=== PATIENT | male | born 1965 | race Caucasian/White ===

== ENCOUNTER 2017-05-11 12:19 | Emergency (ER) | payer OTHER ==
[~2017-05-11] VITALS: Ht 172.7 cm; Wt 89.1 kg
[2017-05-11 12:23] VITALS: BP 168/97; PULSE 80; TEMP 36.7; O2SAT 97; Ht 172.7 cm; Wt 89.1 kg
[2017-05-11] MEDS ORDERED: LIDOCAINE/EPINEPHRINE 1% 20 ML VIAL INFIL ONE (13:00)
--- NOTE | 2017-05-11 14:08 | DIAGNOSTIC IMAGING REPORT ---
RIGHT RIBS UNILATERAL WITH PA CHEST CLINICAL HISTORY: fall; right rib pain Right COMPARISON STUDY: None. FINDINGS: Low lung volumes. The lungs are clear. No pleural effusions. No pneumothorax. The heart is borderline enlarged. No rib fractures. IMPRESSION: No rib fractures. No pneumothorax. Electronically signed by: Lele Mac M.D. 05/11/2017 2:07 PM Dictated Date/Time: 05/11/2017 2:04 PM
[2017-05-11] MEDS ORDERED: METO50TA7 PO (14:10)
[2017-05-11] MEDS ORDERED: METF-384 PO (14:10)
[2017-05-11] MEDS ORDERED: GLIM2TAB2 PO (14:10)
[2017-05-11] MEDS ORDERED: LISI-788 PO (14:10)
--- NOTE | 2017-05-12 16:57 | EMERGENCY ROOM VISIT NOTE ---
ED Visit Note First contact with patient: 12:28 Chief Complaint: I cut my head and struck my ribs on the gait. History of Present Illness: Mr. Fregoso is a 51-year-old white male who ambulates into the ED accompanied by his complaining of a scalp laceration and right sided rib pain. 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 He reports one of the bulls became agitated and knocked him into a gate and he struck his right anterior and lateral ribs off a metal gate. He then started falling towards the ground and the ball kicked and he reports he had a glancing blow to the scalp and sustained a laceration. At the time of the injury he reports there was no loss of consciousness and since the injury he denies all signs of head injury. Currently he is complaining of a burning sensation in the area of his scalp laceration. He rates his discomfort 4/10. His pain is nonradiating. His pain worsens with palpation. He has not identified any alleviating factors related to the pain. He has not taken medications for pain prior to arrival at the hospital. Additionally he is complaining of pain over the right side of the chest wall in the areas of ribs 5 through 7. The pain is located anterior laterally. He rates this discomfort 3/10. His pain is nonradiating. His pain worsens with palpation and deep inspiration. He has not identified any alleviating factors related to the pain. He has not taken any medications for pain prior to arrival at the hospital. He denies any associated headache, dizziness, lightheadedness, visual changes, hearing changes, difficulty speaking, difficulty swallowing, difficulty ambulating/coordinating body movements, neck pain, chest pain, shortness of breath, difficulty breathing, abdominal pain, nausea/vomiting, extremity weakness/numbness/tingling. Review of Systems: As noted above in history of present illness. 8 body systems were reviewed and found to be negative as noted above. Past Medical History: Diabetes, hypertension, unspecified skin disorder, surgical repair on unspecified arm injury and knee injury. Current Medications: Medications Dose Route/Sig Max Daily Dose Days Date Category Zestoretic 20MG/25MG (HCTZ/Lisinopril) Tab 1 Tab PO DAILY 05/11/17 Reported Glucophage (Metformin Hcl) 1,000 Mg Tab 1,000 Mg PO BID 05/11/17 Reported Toprol-Xl (Metoprolol Succinate) 50 Mg Tabcr 50 Mg PO DAILY 05/11/17 Reported Glimepiride 2 Mg Tab 1 Tab PO DAILYBB 05/11/17 Reported Allergies to Medications: Penicillin. Social History: Patient is currently employed; he feels safe in his home environment; he denies tobacco use and admits to alcohol use. Tetanus Immunization Status: Patient was unsure. Physical Examination: Vital Signs: Date Time Temp Pulse Resp B/P (MAP) Pulse Ox O2 Delivery O2 Flow Rate FiO2 05/11/17 12:23 36.7 80 20 168/97 97 Room Air GENERAL: 51-year-old male in mild to moderate distress due to pain, nontoxic- appearing, afebrile and hemodynamically stable. NEUROLOGICAL: Awake, alert and oriented to person, place and time. Answering questions appropriately and following commands. Normal gait. Good hand eye coordination. No focal motor sensory deficits. Cranial nerves II through XII grossly intact. Romberg test negative. Pronator drift test negative. Good short-term and long-term recall. Normal rapid Movements of the hands. SKIN: Warm, diaphoretic and pink. Scalp: 6.5 cm full-thickness laceration over the right temporal area. Minimally bleeding. HEENT: Skull: Normocephalic. Soft tissue injury as noted above. No bony deformity, bony crepitus or depressions. No raccoon's eyes or bethea signs. No drainage from the ears or the nostril; no hemotympanum. Face: No bony deformity, tenderness, swelling or ecchymosis. PERRLA. EOMI without nystagmus. No malocclusion. No intraoral trauma. Airway patent. Speech normal. No lymphadenopathy. BACK: No tenderness over the bony cervical and thoracic spine. No CVA tenderness. THORAX: Lungs sounds are clear to auscultation and equal bilaterally with symmetrical chest wall. Mild to moderate tenderness over the anterior and lateral aspect of the right ribs 5 through 7. No bony crepitus, subcutaneous air or deformities are noted. ABDOMEN: Flat, soft and nontender. Positive bowel sounds in all quadrants. No guarding, rigidity or organomegaly. EXTREMITIES: Moves all extremities well on command and with purpose. All distal neurovascular statuses are intact and equal bilaterally. ED Course: Patient is assessed as noted above. Patient's medication list was reviewed. [id number] BSG: Over 300. PA Chest and Right Rib Series: Were read by myself and the radiologist showing no acute infiltrates, effusions or pneumothorax. Normal heart silhouette and bony anatomy. Wound Repair: Complexity: Basic Verbal consent was obtained after the risks and benefits were explained. The skin was prepped with betadine and a sterile field set. Wound edges of the wound was anesthetized with 6.2 ml buffered 1% lidocaine. The wound was explored for foreign bodies and none found. Copious irrigation was performed using sterile saline. With direct pressure the bleeding subsided. Debridement was not performed. The wound edges were approximated using 11 yvan. Hemostasis and excellent approximation was achieved. Antibacterial ointment applied. No complications and the patient tolerated the procedure well. Prior to departure I did have a conversation with the patient involving his blood sugar and hypertension. He reports last few months both his blood sugar and hypertension have been in flux and his primary care provider is currently changing his medications for improvement of both of these issues. I did request that he follow-up with his primary care provider because his readings were elevated today and he agreed to do so. Patient was educated about tonight's findings and instructed on his treatment plan; he verbalizes understanding and agreement with this plan. Clinical Impression: Laceration of the right temporal scalp. Right sided rib pain. Disposition: Patient discharged home in stable condition; prior to departure he was reassessed and subjectively reported he was pain and symptom-free. Plan: Comfort measures, wound care, signs of infection and signs of head injury were discussed with the patient and his . Patient was encouraged to follow-up with personal physician or return emergency department for signs of infection and/or staple removal in 10-12 days. Patient was encouraged return to the ED for any signs of head injury or any new/ concerning symptoms.
== END 2017-05-11 14:27 | disposition home or self-care (01) ==
LOC: C.EDB 12:21 → C.EDD 14:27
DX: S01.01XA Laceration without foreign body of scalp, initial encounter (principal); R07.81 Pleurodynia; E11.9 Type 2 diabetes mellitus without complications; I10 Essential (primary) hypertension; Z79.899 Other long term (current) drug therapy; Z79.84 Long term (current) use of oral hypoglycemic drugs; W22.8XXA Striking against or struck by other objects, initial encounter; W55.22XA Struck by cow, initial encounter

== ENCOUNTER 2017-05-21 11:35 | Emergency (ER) | payer OTHER ==
[~2017-05-21] VITALS: Ht 170.2 cm; Wt 87.9 kg
[~2017-05-21 11:35] MED LIST: GLIM2TAB2 PO; LISI-788 PO; METF-384 PO; METO50TA7 PO
[2017-05-21 11:39] VITALS: BP 172/115; PULSE 83; TEMP 36.5; O2SAT 97; Ht 170.2 cm; Wt 87.9 kg
--- NOTE | 2017-05-22 06:50 | EMERGENCY ROOM VISIT NOTE ---
ED Visit Note First contact with patient: 11:45 CHIEF COMPLAINT: Staple removal. HISTORY OF PRESENT ILLNESS: Mr. Fregoso is a 51-year-old male who ambulates into the ED requesting staple removal for a scalp laceration he sustained 10 days ago. He reports there has been no pain, swelling, redness, or drainage from the wound and he feels like the laceration is healing well. PHYSICAL EXAM: Vital Signs: Date Time Temp Pulse Resp B/P (MAP) Pulse Ox O2 Delivery O2 Flow Rate FiO2 05/21/17 11:39 36.5 83 18 172/115 97 Room Air General: 51-year-old male in no acute distress, nontoxic-appearing, afebrile and hypertensive; should be noted from his previous medical records he is currently in treatment for hypertension and reports that he has been following with his primary care provider in his medications for his hypertension has been reevaluated. Neurological: Awake, alert and oriented 3. Answering questions appropriately and following commands. Scalp: Clean dry and intact wound with a large amount of scab around his wound. No signs of infection (erythema, swelling, tenderness, purulent drainage ). ED COURSE: Patient is assessed as noted above. Patient's medications were reviewed. 11 yvan were removed without any difficulty, but there was some breaking of the scab and minimal bleeding, but there was no separation of the wound edges. DISPOSITION: Patient discharged home in stable condition. CLINICAL IMPRESSION: Suture removal; Well healing laceration. PLAN: Wash any remaining crusts off of the wound today and resume normal activities. Patient was encouraged to continue to watch for any signs of infection. Patient was encouraged follow-up with PCP or return to the ED for signs of infection or any new/concerning symptoms.
== END 2017-05-21 12:12 | disposition home or self-care (01) ==
LOC: C.EDB 11:36 → C.EDD 12:12
DX: S01.01XD Laceration without foreign body of scalp, subsequent encounter (principal); X58.XXXD Exposure to other specified factors, subsequent encounter

== ENCOUNTER 2017-05-22 09:08 | Emergency (ER) | payer OTHER ==
[~2017-05-22] VITALS: Ht 175.3 cm; Wt 86.9 kg
[2017-05-22 09:12] VITALS: BP 168/103; PULSE 96; TEMP 36.7; O2SAT 93; Ht 175.3 cm; Wt 86.9 kg
--- NOTE | 2017-05-22 17:57 | EMERGENCY ROOM VISIT NOTE ---
ED Visit Note First contact with patient: 09:14 CHIEF COMPLAINT: Taper removal. HISTORY OF PRESENT ILLNESS: Mr. Fregoso is a 51-year-old white male who ambulates into the ED requesting staple removal. Patient reports coordination he sustained a scalp laceration 11 days ago that was repaired with yvan and the ED. I saw the patient yesterday and removed 11 yvan; I did check his medical record which what was reported was placed. I do note that yesterday patient had a large scab over all of his sutures. Patient reports he took a shower this morning and remove most of the scab and his looked at his head and reported there were 2 additional yvan closing the wound. There has been no pain, swelling, redness, or drainage from the wound and he feels like the laceration is healing well. PHYSICAL EXAM: Vital Signs: Date Time Temp Pulse Resp B/P (MAP) Pulse Ox O2 Delivery O2 Flow Rate FiO2 05/22/17 09:12 36.7 96 18 168/103 93 Room Air General: 51-year-old white male in no acute distress, nontoxic-appearing, afebrile and hemodynamically stable. Neurological: Awake, alert and oriented 3, answering questions appropriately and following commands. Skin: Warm, dry and pink. Scalp: Wound is now clean of scab and there are 2 additional yvan in the wound. The wound is clean dry and intact wound on the XXX without signs of infection (erythema, swelling, tenderness, purulent drainage). ED COURSE: Patient is assessed as noted above. 2 yvan were removed without any difficulty and there was no separation of the wound edges. Patient was educated about today's findings and instructed on his treatment plan ; he verbalized understanding and agreement with this plan. DISPOSITION: Patient discharged home in stable condition. CLINICAL IMPRESSION: Suture removal; Well healing laceration. PLAN: Patient was encouraged to continue wound care instructions previously given and to watch for signs of infection. Patient was encouraged return the ED or follow-up with his PCP for any signs of infection.
== END 2017-05-22 09:21 | disposition home or self-care (01) ==
LOC: C.EDB 09:09 → C.EDA 09:21
DX: Z48.02 Encounter for removal of sutures (principal)